=== PATIENT | male | born 1970 | race Caucasian/White ===

== ENCOUNTER 2025-08-01 22:44 | Emergency (ER) | payer OTHER, SELFPAY ==
[2025-08-01 22:44] VITALS: BMI 27.2
[2025-08-01 22:45] VITALS: BP 139/82
[2025-08-01 23:17] VITALS: BP 125/73
[2025-08-02] VITALS: BP 113/72
[2025-08-02 01:00] VITALS: BP 116/70
[2025-08-02] MEDS: TORADOL 15 MG IV (01:15)
--- NOTE | 2025-08-02 01:24 | ED.GENMED ---
History of Present Illness
General
Chief Complaint: Musculo-Skeletal Complaint
Source: patient
Exam Limitations: none
Time Seen by Provider: 08/02/25 00:14
Nursing documentation reviewed up to this point in time: agreed with
History of Present Illness
History of Present Illness:
55-year-old male past medical history of GERD who presents to the ER today with concerns of left shoulder pain starting around 30 minutes prior to arrival. The patient reports that the pain started while he was sitting on the couch. He reports
that since the pain is started the pain has been improving. He reports that at rest, he has no pain but when he moves the shoulder, the pain comes on. He does note that earlier today he was lifting some heavy boxes and he was playing golf which
seemed to exacerbate the symptoms. Currently, he denies shortness of breath, palpitations. He also notes ongoing back pain that has been going on for about a month. He also reports a persistent cough, of note he was recently treated for
bronchitis and recently finished doxycycline a few days ago. He denies any fevers or chills, denies any sputum production. Denies any substernal chest pain. was concerned for potential cardiac etiology. She reports that at 1 point it
radiated to the chest but patient himself denies radiation to the chest. He denies any syncopal episodes. He denies any direct trauma to the area.
Past History
Past History
ED Past Medical History: None
ED Past Surgical History: None
Social History
Tobacco: Non-smoker
Alcohol: Occasional
Drug: Marijuana
Personal:
Living: with family
Employment: Employed
Family History
Family History: CAD (Maternal grandfather in his 50s of coronary artery disease. Mother with history of heart disease in her 70s)
Review of Systems
Review of Systems
All Other Systems: ROS reviewed and negative except as documented in HPI and ROS
Phy Exam
Physical Exam
Physical Exam:
General: Patient is well appearing and in no acute distress; non-toxic
Skin: Warm and dry, no rashes or lesions
Head: Normocephalic, atraumatic
Eyes: Sclera non-icteric. EOMs intact.
Cardiac: Regular rate and rhythm, no murmurs, no tenderness palpation of the external chest wall
Peripheral Vascular: 2+ radial pulses bilaterally.
Pulm: Normal respiratory effort, no wheezes, rales, rhonchi
Abdomen: No abdominal tenderness to palpation, no epigastric pain
Musculoskeletal: Left shoulder pain noted with internal/external rotation, tenderness palpation of the left upper trapezius. No midline spinal tenderness.
Neuro: CN II-XII intact, no focal neurologic deficits.
Psychiatric: Appropriate mood and affect.
Course
Orders/Labs/Results
Orders:
Orders
08/01/25 22:47
Electrocardiogram (*1) Urgent
Reason for Study: Chest Pain
EKG- Treatment ONCE
08/02/25 01:02
Ketorolac [Toradol] 15 mg IM NOW STA
CR Shoulder - Left Min 2 View* Urgent
Comment:
Reason For Exam: upper back pain, left shoulder pain
08/02/25 01:03
CR Chest - 2 Views Urgent
Comment:
Reason For Exam: upper back pain, left shoulder pain
08/02/25 01:07
Ketorolac [Toradol] 15 mg IV NOW STA
08/02/25 01:11
Complete Blood Count/With Diff Urgent
Comprehensive Metabolic Panel Urgent
Troponin I Urgent
Abnormal Lab Results
08/02/25
01:11
RBC 4.58 L 10^6/uL
(4.70-6.10)
MCH 32.1 H pg
(27.0-31.0)
MPV 10.9 H fL
(7.4-10.4)
Absolute Monos (auto) 0.7 H 10^3/uL
(0.1-0.6)
Monocytes % 10.2 H %
(1.7-9.3)
BUN 29 H mg/dl
(9-20)
Total Bilirubin 1.7 H mg/dl
(0.2-1.3)
08/02/25 01:11
08/02/25 01:11
Vital Signs
Initial and Last Documented VS:
Initial Vital Signs
Temp Pulse Resp BP Pulse Ox
97.9 F 64 16 139/82 97
08/01/25 22:45 08/01/25 22:45 08/01/25 22:45 08/01/25 22:45 08/01/25 22:45
Last Documented Vital Signs
Temp Pulse Resp BP Pulse Ox
97.9 F 63 18 115/69 97
08/01/25 22:45 08/02/25 00:45 08/02/25 02:46 08/02/25 02:46 08/02/25 01:24
MDM/Problems Addressed
Differential Diagnosis Includes:
Differentials and left shoulder sprain, AC joint tear, GERD, costochondritis
MDM/Problems Addressed:
55-year-old male past medical history of GERD who presents to the ER today with concerns of left shoulder pain starting around 30 minutes prior to arrival. The patient reports that the pain started while he was sitting on the couch. He reports
that since the pain is started the pain has been improving. He reports that at rest, he has no pain but when he moves the shoulder, the pain comes on. He does note that earlier today he was lifting some heavy boxes and he was playing golf which
seemed to exacerbate the symptoms. c
In the ER, Toradol significantly improved his symptoms. He reports that he does not feel pain currently. His initial troponin was undetectable. His EKG is nonischemic. His chest x-ray shows no acute findings. His shoulder x-ray shows no acute
fracture or dislocation. I did discuss with patient that 1 troponin does not effectively rule out acute coronary syndrome. Patient expressed understanding and would like to go home. I think this is reasonable as patient states pain I strongly
suspect is musculoskeletal in nature as it resolved with anti-inflammatories and was related to movement in the setting of lifting heavy boxes today and potential overuse injury with golfing. Patient stable for discharge. Discussed follow-up with
primary care provider and strict return precautions. Case discussed with ED attending.
Chronic conditions affecting care:
GERD
*Pulse Oximetry
SaO2: 97
Oxygen Mode of Delivery: Room air
Patient hypoxic: no
*Critical Care Note
Total Time (30-74mins, 75-104mins- exclusive of procedures): Not Applicable
Data Reviewed
Review of Other/Old Records Reveals: Records (Reviewed discharge summary from 06/26/2020 patient seen for chest pain likely secondary to pericarditis with serially undetectable troponin)
Source: patient and records
ED Attending Note
-
Portions of this chart may have been created with voice recognition software.� Occasional wrong word or��sound alike� substitutions may have occurred due to the inherent limitations of voice recognition software.
Discharge Plan
Departure
Patient Disposition: Home (Routine Discharge)
Date of Disposition: 08/02/25
Time of Disposition: 02:29
Patient with high blood pressure during this ER visit?: Yes
Condition: Good
Discharge Problem:
Sprain of left shoulder, Bronchitis
Instructions: Bronchitis in adults - ED (DC), Shoulder pain - ED (DC), BLOOD PRESSURE
Prescriptions:
New
prednisone 20 mg tablet
40 mg PO DAILY 5 Days Qty: 10 0RF
No Action
ibuprofen 200 MG capsule
600 mg PO TID Qty: 30 0RF
Rx Instructions:
Take Advil (ibuprofen) 600 mg (three 200 mg tablets) three times daily with meals for 2 weeks then stop
omeprazole 20 MG capsule,delayed release(DR/EC)
20 mg PO DAILY Qty: 14 0RF
Referrals:
Crow Snowden MD [Family Provider, Family Practice]
Activity Restrictions/Additional Instructions:
Your blood work showed some signs of dehydration. Please stay well hydrated.
Prednisone has been sent to your pharmacy. Please take 40 mg once daily for 5 days.
As discussed, your troponin is undetectable and your EKG showed normal acute changes.
PLEASE RETURN TO THE ER IF YOU WERE TO DEVELOP CHEST PAIN, SHORTNESS OF BREATH, ACUTE WORSENING YOUR SYMPTOMS, JAW PAIN, LOSS OF SENSATION IN YOUR EXTREMITIES, LIGHTHEADEDNESS, DIZZINESS, OR ANY OTHER SIGNS OR SYMPTOMS WORRISOME TO YOU.
Interventions
Interventions:
*Risk Screen - Suicide Last Done: 08/01/25 22:45
*General Assessment Last Done: 08/02/25 02:47
*Neglect/Abuse Screening Last Done: 08/01/25 22:45
*ED- Fall Risk Assessment Last Done: 08/02/25 02:47
*ED COVID-19 Vaccine History Last Done: 08/02/25 02:47
*ED Influenza Vaccine History Last Done: 08/02/25 02:47
*Nursing Disposition Last Done: 08/02/25 02:47
ED-Musculoskeletal Assessment Last Done: 08/01/25 23:20
Discharge Date and Time
Discharge Date/Time: 08/02/25 02:49
Print Language: GRENADIAN
[2025-08-02 01:26] LABS: Hematocrit 42.8 % (39.0-52.0); Hemoglobin 14.7 g/dL (13.0-18.0); Mean Corp Hgb Conc. 34.3 g/dL (33.0-37.0); Mean Corpuscular Volume 93.4 fL (80.0-94.0); Nucleated Red Blood Cells % 0 % (-); Platelet Count 187 10^3/uL (130-400); Red Cell Dist. Width 12.2 % (11.5-14.5)
[2025-08-02 01:47] LABS: ALT (SGPT) 23 U/L (0-50); AST (SGOT) 29 U/L (17-59); Albumin 4.2 g/dl (3.5-5.0); Alkaline Phosphatase 42 U/L (38-126); Blood Urea Nitrogen 29 mg/dl (9-20); Calcium 9.2 mg/dl (8.4-10.2); Carbon Dioxide 26 mmol/L (22-30); Chloride 106 mmol/L (98-107); Estimated Creatinine Clearance 95 ml/min; Glucose 99 mg/dl (70-99); Potassium 4.0 mmol/L (3.5-5.1); Sodium 138 mmol/L (135-145); Total Protein 7.1 g/dl (6.3-8.2); eGFR > 60.00
[2025-08-02 01:59] LABS: Troponin I < 0.012 ng/ml
[2025-08-02 02:46] VITALS: BP 115/69
== END 2025-08-02 02:49 | disposition home or self-care (01) ==
LOC: EMR 22:44
PROVIDERS: Physician Assistant; EMERGENCY PHYSICIAN Student in an Organized Health Care Education/Training Program; FAMILY PHYSICIAN Family Medicine
DX: S43.402A Unspecified sprain of left shoulder joint, initial encounter (principal); X50.0XXA Overexertion from strenuous movement or load, initial encounter; Y93.53 Activity, golf; J40 Bronchitis, not specified as acute or chronic
CPT/HCPCS: 96374; 99284; 71046; 73030; 80053; 84484; 85025; 93005